=== PATIENT | female | born 1985 | race Caucasian/White ===

== ENCOUNTER → 2016-08-26 | Outpatient (CLI) | payer SELFPAY ==
[~2016-08-26] MED LIST: ACET-789 PO; CEPH-507 PO; HYDR-3754 PO; METF-473 PO; [UNRECOGNIZED DRUG - OTHER] PO
[2016-08-26 11:44] VITALS: BP 142/80
--- NOTE | 2016-08-26 11:44 | Urgent Care T Sheet Gen (E) ---
Intake General Temperature (Fahrenheit): 98.6 Pulse: 97 Blood Pressure Systolic: 142 Blood Pressure Diastolic: 80 Respirations: 18 SPO2: 98 Description of Symptoms patient presents with chest tightness and wonders if it is anxiety. Started last week. Patient states she was diagnosed with anxiety years ago by her PCP while living in [place]. No meds were prescribed at that time. Patient now lives in [place] and doesn't have a PCP. Patient states her chest feels tight but pain doesn't radiate. Also been having muscular upper back pain for which she has been seeing a chiropractor. Sees Dr Tracey in [place] and takes a vitamine. Allergic to PCN, Zpak and Tdap History of Present Illness Allergies: Coded Allergies: azithromycin (Verified Allergy, Intermediate, hives vomiting, 05/20/12) Penicillins (Verified Allergy, 05/20/12) Uncoded Allergies: SULPHA (Allergy, HIVES, 11/08/12) Home Meds Active Scripts Acetaminophen With Codeine (Tylenol With Codeine #3 Tablet)1 Each Tablet1-2 Tab PO Q4H PRN #20 Ref 0 Prov:HENRY NICHOLS MD 11/08/12 Cephalexin (Keflex)500 Mg Capsule1 Tab PO Q4H 10 Days Ref 0 Prov:HENRY NICHOLS MD 11/08/12 Reported Medications [Erik Wt Loss Supplement] CAP No Conflict Check1 Cap PO BID 11/08/12 Respiratory Constitutional Symptoms: No syptoms reported Cardiovascular: Other (chest tightness) Neurological: Anxiety All Other Systems Reviewed Remaining Systems: All other systems reviewed with negative findings Past Qzxbeao-Rwuasi-Ddfqgy Hx Surgeries/Hospitalizations Hospitalization/Surgery Hx: NO SURGERIES NO MAJOR ILLNESS Respiratory Respiratory History: None Cardiovascular Cardiovascular History: None Neuro/Muscular Comment: OCCA MIGRAINES EXCEDERIN HELPS Reproductive System Sexually Transmitted Diseases: No Gastrointestinal GI/Endocrine History: None Diabetes Diabetes: No HEENT Impaired Vision: Glasses Hearing Impaired: None Psychosocial Behavior Disorders: None Physical Exam Physical Exam General Appearance: WD/WN No apparent distress (doesn't appear anxious but patient states her chest feels tight) Departure Urgent Care Impression Impression: Primary Impression: Chest tightness Departure Condition: Stable Referrals: PILO TRACEY MD (PCP) Additional Instructions: I have referred the patient to Dr Winchester who will see her today at 2:15. Patient believes this is anxiety however wanted a cardiac workup to rule that out. Explained to her that we don't do that at however family practice could. She appreciated the referral Report called to [facility] All questions were answered. End of report . PEDRO AVILA Aug 26, 2016 11:44
== END ==
LOC: MHUC 10:02
PROVIDERS: ATTEND Physician Assistant
DX: R07.89 Other chest pain (principal)